=== PATIENT | male | born 1975 | race Caucasian/White ===

== ENCOUNTER 2021-03-14 06:46 | Emergency (ER) | payer SELFPAY ==
[~2021-03-14] VITALS: Ht 185.4 cm; Wt 104.3 kg
[2021-03-14 07:12] LABS: BILIRUBIN 1+ (Negative); BLOOD 2+ (Negative); CLARITY Turbid (Clear); COLOR Red (Yellow); GLUCOSE Negative (Negative); KETONE Negative (Negative); LEUKO ESTERASE 1+ (Negative); NITRITE Positive (Negative); SPECIFIC GRAVITY >= 1.030 (1.001-1.030)
[2021-03-14 07:21] LABS: RBC TNTC rbc/hpf (0-2)
[2021-03-14 07:49] LABS: BASO % 0.3 % (0.0-1.0); EOS % 0.2 % (1.0-4.0); LYMPH % 7.5 % (27.0-41.0); MEAN CELL VOLUME 89.4 fl (80.0-94.0); MEAN CORPUSCULAR HGB 30.5 pg (27.0-31.0); MEAN CORPUSCULAR HGB CONC 34.1 g/dl (33.0-37.0); MONO # 0.7 10*3/uL (0.1-1.0); MONO % 5.5 % (3.0-9.0); NEUT # 11.3 10*3/uL (2.3-7.9); PLATELET COUNT AUTOMATED 267 10*3/uL (130-400); RED BLOOD COUNT 4.92 10*6/uL (4.50-5.90); RED CELL DISTRI WIDTH 11.9 % (0-14.5); WHITE BLOOD COUNT 13.2 10*3/uL (4.8-10.8)
[2021-03-14 08:04] LABS: ALBUMIN 3.8 gm/dl (3.1-4.5); ALKALINE PHOSPHATASE 73 U/L (45-117); BUN 10 mg/dl (7-24); CHLORIDE 103 mmol/L (98-107); CREATININE 1.47 mg/dL (0.70-1.30); POTASSIUM 3.7 mmol/L (3.5-5.1); SGOT/AST 17 IU/L (3-35); SGPT/ALT 46 U/L (12-78); SODIUM 136 mmol/L (136-145); TOTAL PROTEIN 7.5 gm/dL (6.4-8.2)
[2021-03-14] MEDS ORDERED: CIPRO500 MG PO (10:17)
[2021-03-14] MEDS ORDERED: HYDROCODONE-AC1 EAC1 PO (10:17)
== END 2021-03-14 10:20 | disposition home or self-care (01) ==
LOC: ED 06:46
PROVIDERS: Internal Medicine; Student in an Organized Health Care Education/Training Program
DX: N20.9 Urinary calculus, unspecified (principal); Z88.0 Allergy status to penicillin